=== PATIENT | male | born 1970 | race African-American/Black ===

== ENCOUNTER 2017-09-29 11:45 | Emergency (ER) | payer OTHER ==
[2017-09-29 12:26] LABS: Bilirubin Negative (Negative); Blood, Urine Large (Negative); Clarity Cloudy (Clear); Glucose, Urine (Dipstick) Negative (Negative); Leukocyte Small (Negative); Nitrite Negative (Negative); Protein, Urine (Dipstick) > or equal to 300 mg/dL (Neg-Trace); Specific Gravity, Urine 1.025 (1.005-1.030)
[2017-09-29 12:29] LABS: RBC/HPF GREATER THAN 50-TNTC HPF (0-3); WBC/HPF 21-50 HPF (0-3)
[2017-09-29 12:30] LABS: Bacteria/HPF 1+ HPF (None Seen); Other Casts/LPF 0-3 COARSE GRAN LPF (0-3 Hyaline); Oval Fat Bodies/HPF 1+ HPF (None Seen); Squamous Epithelial 0-3 HPF (0-3)
== END 2017-09-29 13:08 | disposition home or self-care (01) ==
LOC: SCSER 11:45
DX: N30.01 Acute cystitis with hematuria (principal)
CPT/HCPCS: 81003; 81015; 87077; 87086; 87186; 99283

== ENCOUNTER 2018-12-31 07:02 | Inpatient (IN) | payer OTHER, SELFPAY ==
[2018-12-31] MEDS ORDERED: Diazepam 10 MG/2 ML SYRINGE ONE (07:24)
[2018-12-31] MEDS ORDERED: Meclizine HCl 25 MG TAB ONE (07:24)
[2018-12-31 07:32] LABS: #Basophils 0.1 thou/uL (0.0-0.2); #Lymphocytes 1.5 thou/uL (1.20-3.40); #Monocytes 0.5 thou/uL (0.11-0.59); #Neutrophils 2.9 thou/uL (1.40-6.50); %Basophils 1.5 % (0.0-1.0); %Eosinophils 0.5 % (0.0-10.0); %Lymphocytes 30.2 % (21.0-51.0); %Monocytes 10.5 % (0.0-10.0); %Neutrophils 57.3 % (42.0-75.0); Hemoglobin 17.1 g/dL (14.0-18.0); Mean Corpuscular HGB CONC 34.1 g/dL (32.0-36.0); Mean Corpuscular Hemoglobin 29.7 pg (27.0-31.0); Mean Corpuscular Volume 87.3 fL (78.0-98.0); Mean Platelet Volume 8.2 fL (7.4-10.4); Platelet Count 271 thou/uL (130-400); RBC Distribution Width 12.2 % (11.5-14.5); Red Blood Cell (RBC) Count 5.74 mill/uL (4.70-6.10); White Blood Cell (WBC) Count 5.1 thou/uL (4.8-10.8)
--- NOTE | 2018-12-31 07:40 | CT ---
Head CT without contrast 12/31/2018: HISTORY: Dizziness, headache TECHNIQUE: Axial CT imaging at 5 mm intervals from vertex through skull base without contrast FINDINGS: The visualized paranasal sinuses and mastoid air cells are well aerated. No displaced ayaan rial fracture. No intracranial hemorrhage, midline shift, mass effect, or ventricular enlargement. IMPRESSION: No acute findings.
[2018-12-31 07:44] LABS: ALT (SGPT) 42 U/L (8-55); AST (SGOT) 56 U/L (5-34); Albumin 4.2 g/dL (3.5-5.0); Alkaline Phosphatase 63 U/L (40-110); Anion Gap 15 mmol/L (10-20); BUN (Urea Nitrogen) 9 mg/dL (8.9-20.6); Bilirubin, Total 0.6 mg/dL (0.2-1.2); CK (CPK) 668 U/L (30-200); Calc. Creatinine Clearance 0 mL/min (70-130); Calcium 8.9 mg/dL (7.8-10.44); Carbon Dioxide 23 mmol/L (22-29); Chloride 106 mmol/L (98-107); Estimated GFR-MDRD Greater than 90; Globulin 3.4 g/dL (2.4-3.5); Glucose 95 mg/dL (70-105); Lipase 43 U/L (8-78); Potassium 3.9 mmol/L (3.5-5.1); Protein, Total 7.6 g/dL (6.0-8.3); Sodium 140 mmol/L (136-145)
--- NOTE | 2018-12-31 07:51 | RAD ---
Portable frontal chest radiograph: 12/31/2018 COMPARISON: None HISTORY: Dizziness, nausea and vomiting FINDINGS: Lungs are clear. There is significant upper thoracic spine dextroscoliosis. IMPRESSION: No acute findings.
[2018-12-31] MEDS ORDERED: Aspirin 325 MG TAB ONE (07:53)
[2018-12-31 08:12] LABS: CKMB 8.1 ng/mL (0-6.6)
[2018-12-31] MEDS ORDERED: Nitroglycerin 2% Ointment 1 INCH/1 GM Packet ONE (09:32)
[2018-12-31 11:52] LABS: Troponin I 0.029 ng/mL (< 0.028)
[2018-12-31 12:26] VITALS: BMI 26.6
[2018-12-31] MEDS ORDERED: Lidocaine 2% Viscous Solution 10 ML, Aluminum & Magnesium Hydroxide 30 ML SSW SCH (14:45)
[2018-12-31] MEDS ORDERED: Ketorolac Tromethamine 30 MG/ML VIAL IVP SCH (14:45)
[2018-12-31 14:47] LABS: Troponin I 0.032 ng/mL (< 0.028)
[2018-12-31] MEDS ORDERED: FLU VACC QS2019-20(6MOS UP)/PF 60 MCG/0.5 ML SYRINGE IM ONE (15:00)
[2018-12-31] MEDS ORDERED: Acetaminophen 325 MG TAB PO PRN (16:10)
[2018-12-31] MEDS ORDERED: Senokot S 8.6-50 MG TAB PO PRN (16:10)
[2018-12-31] MEDS ORDERED: HYDROcodone/Acetaminophen 5/325 mg Tablet PO PRN (16:10)
[2018-12-31] MEDS ORDERED: cloNIDine 0.1 MG TAB PO PRN (16:27)
[2018-12-31] MEDS: Sodium Chloride 0.9% 1,000 ML IV SCH (16:44)
[2018-12-31 17:03] LABS: Reticulocyte Count 1.7 % (0.5-1.5)
[2018-12-31 17:26] LABS: CRP (Inflammatory) Less than 0.50 mg/dL (= or < 0.5); Uric Acid 6.4 mg/dL (3.5-7.2)
--- NOTE | 2018-12-31 19:07 | HP ---
PRIMARY CARE PHYSICIAN: Nubia Arredondo. CHIEF COMPLAINT: Dizziness, chest pain. HISTORY OF PRESENT ILLNESS: Mr. Schuler is a very pleasant 48-year-old male, who reports to the emergency room in [facility] this morning after waking up with severe dizziness, nausea, and vomiting. Reports that he went to bed feeling a little bit dizzy, but woke up with severe dizziness and threw up several times. He denied any chest pain at that time. Denied any headache or vision changes. Reports the condition was exacerbated by position. Reports that the last time he felt dizzy was when his blood pressure was elevated several years ago and started on medication for his blood pressure. Reports that they have taken him off his medication because he lost some weight and he was no longer hypertensive. Does report, however, that when he went to see his PCP last, that his blood pressure was elevated again in the office, but no medications were restarted. Reports the dizziness was improved after the patient was given some meclizine and some Valium. While in the emergency room, he started complaining of some chest tightness. A second EKG was obtained, which showed normal sinus rhythm, beats per minute 71, no ST elevation. The patient was subsequently sent over to [facility] for further management. REVIEW OF SYSTEMS: The patient reports dizziness. Denies headache or focal weakness. Reports dizziness improved after medication. Reports nausea, vomiting. Denies any diarrhea or abdominal pain. Reports some chest pressure. Reports some joint pain. All other systems are reviewed and are negative unless mentioned in the HPI. PAST MEDICAL HISTORY: Pertinent for GERD, gout, and asthma. PAST SURGICAL HISTORY: None. PSYCHIATRIC HISTORY: None. SOCIAL HISTORY: Lives at home with his family. He is a former tobacco smoker. Drinks alcohol 2 glasses of liquor per day. Denies any drug use. KNOWN ALLERGIES: None. CURRENT MEDICATIONS: 1. Allopurinol 300 mg p.o. daily. 2. Trazodone 50 mg p.o. at bedtime. 3. Prilosec 40 mg p.o. daily. PHYSICAL EXAMINATION: VITAL SIGNS: Blood pressure 158/92, pulse is 85, respirations are 19, temperature is 98.3, and pO2 sats are 98% on room air. CONSTITUTIONAL: The patient appears nontoxic. He is alert and oriented to person, place, and time. HEENT: Head is atraumatic and normocephalic. Eyes; pupils are equally round and reactive to light. Extraocular muscles are intact. ENT; mouth exam is normal. Mucous membranes are moist. NECK: Normal range of motion. Trachea is midline. RESPIRATORY/CHEST: Breath sounds are clear. Chest expansion is equal. CARDIOVASCULAR: Regular rate and rhythm. Heart sounds are normal. ABDOMEN: Nontender. Bowel sounds are heard. BACK: Normal inspection. Normal range of motion. EXTREMITIES: Upper extremity; inspection normal. Normal range of motion. Radial pulses are normal. Lower extremity; normal inspection. Normal range of motion. Pedal pulses are normal. No edema is noted. NEUROLOGIC: The patient is oriented to person, place, and time. Speech is normal. Cranial nerves 2 through 12 are grossly intact. SKIN: Warm, dry, and normal in color. ASSESSMENT AND PLAN: 1. Dizziness, improved after meclizine and Valium. CT scan of the head showed no acute findings. The patient has no other neurological symptoms. We will continue the meclizine 12.5 mg q.8 hours as needed, also trend blood pressure. We will treat as needed. 2. Chest pressure. Troponins x3 are in the indeterminate range. We will order a stress test in the morning. 3. Joint discomfort, possible gout flare. We will check uric acid. He reports a brother has sickle cell, so we will check a retic count, ESR, sed rate. Hydrate with 75 mL per hour. CK is also elevated at 668. We will recheck value in the morning. 4. Gastrointestinal and deep venous thrombosis prophylaxis has been started. 5. Hospital course is dependent on clinical findings. Job ID: [id number]
[2018-12-31] MEDS: Meclizine HCl 12.5 MG TAB PO SCH (20:21)
[2018-12-31] MEDS: traZODone HCl 50 MG TAB PO SCH (20:21)
[2018-12-31 20:41] LABS: Bilirubin Negative (Negative); Blood, Urine 1+ (Negative); Clarity Clear (Clear); Glucose, Urine (Dipstick) Normal (Negative); Leukocyte 75 Leu/uL (Negative); Nitrite Negative (Negative); Protein, Urine (Dipstick) 50 mg/dL (Neg-Trace); Squamous Epithelial 0-3 HPF (0-3)
[2018-12-31 20:50] LABS: Amphetamine Not Detected (NotDetected); Barbiturates Screen Not Detected (NotDetected); Benzodiazepine Screen Detected (NotDetected); Cocaine Metabolite Screen Not Detected (NotDetected); Medtox Control Line Valid? VALID (VALID); Medtox Reader # READER 4; Methadone Not Detected (NotDetected); Methamphetamine Not Detected (NotDetected); Opiate Screen Not Detected (NotDetected); Oxycodone Screen Not Detected (NotDetected); Phencyclidine (PCP) Not Detected (NotDetected); THC/Cannabinoid Screen Not Detected (NotDetected); Tricyclic Screen Not Detected (NotDetected)
[2018-12-31 20:52] LABS: Bacteria/HPF Rare-Few HPF (None Seen); Mucous/LPF 2+ LPF (<2+)
[2018-12-31 20:53] LABS: Urine Culture Reflex Yes Yes
[2018-12-31] MEDS ORDERED: Famotidine 20 MG TAB PO SCH (21:00)
[2019-01-01] MEDS: Sodium Chloride 0.9% 1,000 ML IV SCH ×3 (05:41→21:24)
[2019-01-01] MEDS ORDERED: Enoxaparin Sodium 40 MG/0.4 ML SYRINGE SC SCH (09:00)
[2019-01-01] MEDS ORDERED: Iopamidol 370 76% 100 ML VIAL ONE (09:19)
[2019-01-01 11:30] LABS: #Lymphocytes 1.1 thou/uL (1.20-3.40); #Monocytes 0.9 thou/uL (0.11-0.59); %Basophils 0.7 % (0.0-1.0); %Eosinophils 0.3 % (0.0-10.0); %Lymphocytes 18.2 % (21.0-51.0); %Monocytes 14.3 % (0.0-10.0); %Neutrophils 66.5 % (42.0-75.0); Hemoglobin 15.2 g/dL (14.0-18.0); Mean Corpuscular HGB CONC 34.3 g/dL (32.0-36.0); Mean Corpuscular Hemoglobin 30.4 pg (27.0-31.0); Mean Corpuscular Volume 88.7 fL (78.0-98.0); Mean Platelet Volume 7.6 fL (7.4-10.4); Platelet Count 197 thou/uL (130-400); RBC Distribution Width 11.9 % (11.5-14.5); Red Blood Cell (RBC) Count 4.98 mill/uL (4.70-6.10)
[2019-01-01] MEDS: Meclizine HCl 12.5 MG TAB PO SCH ×3 (11:58→21:21)
[2019-01-01] MEDS: HYDROcodone/Acetaminophen 5/325 mg Tablet PO PRN ×2 (12:01→17:54)
[2019-01-01 12:04] LABS: Anion Gap 11 mmol/L (10-20); BUN (Urea Nitrogen) 10 mg/dL (8.9-20.6); CK (CPK) 274 U/L (30-200); Calc. Creatinine Clearance 119 mL/min (70-130); Calcium 8.6 mg/dL (7.8-10.44); Carbon Dioxide 27 mmol/L (22-29); Chloride 104 mmol/L (98-107); Estimated GFR-MDRD Greater than 90; Glucose 126 mg/dL (70-105); Potassium 3.7 mmol/L (3.5-5.1); Sodium 138 mmol/L (136-145)
[2019-01-01 12:27] LABS: Cardiac Risk 3.4 (Less than 4.5)
--- NOTE | 2019-01-01 13:29 | NM ---
CARDIAC SPECT: CLINICAL HISTORY: 48-year-old male with chest pain. TECHNIQUE: A myocardial perfusion scan was performed using the single isotope one day protocol with technetium-9 9m sestamibi. 10 mCi were injected intravenously for the rest exam followed by 32 mCi for the stress exam. Pharmacologic stress with Adenosine was monitored and interpreted by Melissa Miller NP. FINDINGS: Homogeneous tracer distribution is seen in the myocardial segments on stress and rest images without fixed or reversible defects. GATED SPECT LVEF: 38%. WALL MOTION EXAM: Global hypokinesis. IMPRESSION: No evidence of reversible ischemia. POS: MAE
--- NOTE | 2019-01-01 14:55 | PDOC.HOSPP ---
- Subjective Encounter Date: 01/01/19 Encounter Time: 14:51 Subjective: 48 y/o male with gout admitted with acute onset of dizziness associated with nausea and vomiting. He developed chest pain while in the ER. Further evaluation showed troponing and CK elevation. Stress test earlier today showed diffuse hypokinesis but no reversible ischemia. He continues to have left chest tightness. Dizziness has resolved. - Objective Vital Signs & Weight: Vital Signs (12 hours) Temp Pulse Resp BP BP BP BP 01/01/19 11:36 99.8 F H 83 14 159/100 H 01/01/19 07:54 98.1 F 81 14 153/98 H 161/104 H 143/93 H 01/01/19 04:11 98.5 F 97 20 143/97 H Pulse Ox 01/01/19 11:36 98 01/01/19 07:54 97 01/01/19 04:11 97 Weight Weight 209 lb 1.6 oz I&O: 12/31/18 01/01/19 01/02/19 06:59 06:59 06:59 Intake Total 2119 Output Total 120 Balance 1998 Result Diagrams: 01/01/19 11:14 01/01/19 11:14 Hospitalist ROS - Medication Medications: Active Medications Generic Name Dose Route Start Last Admin Trade Name Freq PRN Reason Stop Dose Admin Hydrocodone Bitart/Acetaminophen 1 tab 12/31/18 16:10 01/01/19 12:01 [place] 5/325 PO 1 tab Q4H PRN Administration Moderate Pain (4-6) Enoxaparin Sodium 40 mg 01/01/19 09:00 01/01/19 11:58 Lovenox SC 40 mg 0900 PEPPER Administration Sodium Chloride 1,000 mls @ 75 mls/hr 12/31/18 15:30 01/01/19 05:41 Normal Saline 0.9% IV 1,000 mls .[id number] PEPPER Administration Meclizine HCl 12.5 mg 12/31/18 21:00 01/01/19 11:58 Antivert PO 12.5 mg TID PEPPER Administration Pantoprazole Sodium 40 mg 01/01/19 09:00 01/01/19 11:58 Protonix PO 40 mg DAILY PEPPER Administration Trazodone HCl 50 mg 12/31/18 21:00 12/31/18 20:21 Desyrel PO 50 mg HS PEPPER Administration - Exam General Appearance: awake alert Eye: anicteric sclera ENT: normocephalic atraumatic, moist mucosa Neck: supple, no JVD Heart: RRR, no murmur Respiratory: no wheezes, no rales, no ronchi, normal chest expansion Gastrointestinal: soft, non-tender, non-distended, normal bowel sounds Extremities: no cyanosis, no clubbing, no edema Neurological: cranial nerve grossly intact, no focal deficits Psychiatric: normal affect, A&O x 3 Hosp A/P (1) Cardiomyopathy Code(s): I42.9 - CARDIOMYOPATHY, UNSPECIFIED Status: Suspected (2) Chest pain Code(s): R07.9 - CHEST PAIN, UNSPECIFIED Status: Acute (3) Gout Code(s): M10.9 - GOUT, UNSPECIFIED Status: Acute (4) Rhabdomyolysis Code(s): M62.82 - RHABDOMYOLYSIS Status: Acute - Plan Continue IVF get Echo Consult cardiology Continue PPI and allopurinol. Follow Ck.
[2019-01-01] MEDS ORDERED: Heparin 10,000 UNITS/1 ML VIAL ONE (15:25)
[2019-01-01] MEDS ORDERED: Lidocaine 1% (PF) 30 ML VIAL ONE (15:26)
[2019-01-01] MEDS ORDERED: Nitroglycerin 100MG/250ML BOT 250 ML ONE (15:28)
[2019-01-01] MEDS ORDERED: Verapamil 5 MG/2 ML VIAL ONE (15:28)
[2019-01-01] MEDS ORDERED: Communication Order-Pharmacy FS SCH (15:30)
--- NOTE | 2019-01-01 15:41 | CON ---
DATE OF CONSULTATION: 01/01/2019 REASON FOR CONSULTATION: Abnormal stress study and chest pain. HISTORY OF PRESENT ILLNESS: Mr. Schuler is a pleasant 48-year-old gentleman with previous history of hypertension that has not been treated, who recently presented with chest pain, dizziness, and lightheadedness. He states the dizziness and lightheadedness have persisted while he has been in the hospital. His rhythm has been stable. His chest pain occurs intermittently. It occurs for several minutes. He states it occurs when he walks up a flight of stairs. It is felt to be random now. He also states it occurs after working out. He states he is not able to do what he has done in the past because he has been concerned about his heart. He presented with the above to an outlying facility and was found to have significant hypertension. He was treated and transferred to [facility]. PAST MEDICAL HISTORY: Acid reflux; hypertension, untreated; gout; and asthma. SOCIAL HISTORY: Previous tobacco abuse. Positive alcohol use. No drug use. ALLERGIES: NONE. REVIEW OF SYSTEMS: Ten-point review of systems was reviewed as above, otherwise negative. PHYSICAL EXAMINATION: GENERAL: Patient is a pleasant 48-year-old gentleman who is in no acute distress. The patient appears their stated age. VITAL SIGNS: Blood pressure 159/100, pulse 83, temperature 98.1. NEUROLOGIC: The patient is alert and oriented x3 with no focal neurologic deficits. HEENT: Sclerae without icterus. Mouth has moist mucous membranes with normal pallor. NECK: No JVD. Carotid upstroke brisk. No bruits bilaterally. LUNGS: Clear to auscultation with unlabored respirations. BACK: No scoliosis or kyphosis. CARDIAC: Regular rate and rhythm with normal S1 and S2. No S3 or S4 noted. No significant rubs, murmurs, thrills, or gallops noted throughout the precordium. PMI is not displaced. There is no parasternal heave. ABDOMEN: Soft, nontender, nondistended. No peritoneal signs present. No hepatosplenomegaly. No abnormal striae. EXTREMITIES: 2+ femoral and 2+ dorsalis pedis pulses. No cyanosis, clubbing, or edema. SKIN: No gross abnormalities. PERTINENT LABORATORY DATA: Hemoglobin 15.2, hematocrit 44.2, and platelet count 197. EKG; normal sinus rhythm, normal EKG. IMPRESSION: 1. Chest pain. 2. Abnormal stress study. 3. Untreated hypertension. RECOMMENDATIONS: Mr. Schuler's decreased LVEF is likely related to untreated hypertension, although given risk factors, can also be due to balanced ischemia. He also has associated chest pain that occurs with exertion. I discussed proceeding with medical therapy versus coronary angiography. I discussed coronary angiography in full detail. Risks include, but not limited to the following: , stroke, MD, need for emergency surgery, loss of limb, bleeding, and infection, as well as a reaction to the dye causing kidney failure and needing long-term dialysis. I also discussed the risks of PCI to include all of the above including coronary dissection and perforation in addition to acute stent thrombosis and restenosis. All questions about the procedure were answered. Given the above, the patient agreed to proceed with coronary angiography and possible PCI. All questions answered. Given the above, the patient agreed to proceed with procedure. Further recommendations pending of the above. Job ID: [id number]
[2019-01-01] MEDS ORDERED: hydrALAZINE 20 MG/ML VIAL ONE (16:08)
[2019-01-01] MEDS ORDERED: Nitroglycerin 4.9 GM Bottle ONE (16:08)
[2019-01-01] MEDS ORDERED: Nitroglycerin 0.4 MG TAB (25 Tab Bottle) SL PRN (16:22)
[2019-01-01] MEDS ORDERED: Sodium Chloride 0.9% 200 ML IV PRN (16:22)
[2019-01-01] MEDS ORDERED: Acetaminophen/Codeine 30-300mg Tablet PO PRN ×2 (16:22)
[2019-01-01] MEDS ORDERED: Sodium Chloride 0.9% 1,000 ML IV SCH (16:30)
[2019-01-01] MEDS ORDERED: ADENOSINE 60 MG/20 ML VIAL ONE (20:31)
[2019-01-01] MEDS: Carvedilol 3.125 MG TAB PO SCH (21:21)
[2019-01-01] MEDS: traZODone HCl 50 MG TAB PO SCH (22:06)
[2019-01-02] MEDS ORDERED: guaiFENesin 200 MG TAB PO PRN (04:33)
[2019-01-02] MEDS: Benzonatate 100 MG CAP PO PRN ×2 (05:15→09:21)
[2019-01-02] MEDS ORDERED: Ibuprofen 200 MG TAB PO PRN (07:13)
[2019-01-02 07:39] LABS: ALT (SGPT) 32 U/L (8-55); AST (SGOT) 29 U/L (5-34); Albumin 3.3 g/dL (3.5-5.0); Alkaline Phosphatase 63 U/L (40-110); Anion Gap 10 mmol/L (10-20); BUN (Urea Nitrogen) 7 mg/dL (8.9-20.6); Bilirubin, Total 0.6 mg/dL (0.2-1.2); CK (CPK) 202 U/L (30-200); Calc. Creatinine Clearance 127 mL/min (70-130); Carbon Dioxide 26 mmol/L (22-29); Chloride 107 mmol/L (98-107); Estimated GFR-MDRD Greater than 90; Globulin 2.8 g/dL (2.4-3.5); Glucose 98 mg/dL (70-105); Potassium 3.4 mmol/L (3.5-5.1); Protein, Total 6.1 g/dL (6.0-8.3); Sodium 140 mmol/L (136-145)
[2019-01-02] MEDS ORDERED: Losartan 25 MG TAB PO SCH (09:00)
[2019-01-02] MEDS: Meclizine HCl 12.5 MG TAB PO SCH ×2 (09:21→14:47)
[2019-01-02] MEDS: Carvedilol 3.125 MG TAB PO SCH (09:21)
[2019-01-02] MEDS ORDERED: Potassium Chloride 20 MEQ TAB PO SCH (09:45)
--- NOTE | 2019-01-02 09:45 | RAD ---
XR Chest Pa Lat STANDARD HISTORY: Worsening cough and chest pain COMPARISON: None FINDINGS: The heart size is normal. The lungs are well expanded without focal areas of consolidation, pneumothorax or pleural effusions. Dextroscoliosis of the thoracic spine is again seen. IMPRESSION: No radiographic evidence of acute cardiopulmonary process.
--- NOTE | 2019-01-02 13:25 | PDOC.HOSPP ---
- Subjective Encounter Date: 01/02/19 Encounter Time: 09:23 Subjective: 48 y/o male with gout admitted with acute onset of dizziness associated with nausea and vomiting. He developed chest pain while in the ER. Further evaluation showed troponing and CK elevation. Stress test earlier today showed diffuse hypokinesis and low EF but no reversible ischemia. He continues to have left chest tightness which is now pleuritic. Also having worsening cough. Dizziness has resolved. Had cardiac cath last night which showed normal coronaries - Objective Vital Signs & Weight: Vital Signs (12 hours) Temp Pulse Resp BP Pulse Ox 01/02/19 11:49 99.4 F 99 20 141/91 H 97 01/02/19 07:35 98.6 F 102 H 24 H 162/101 H 97 01/02/19 04:20 98 F 94 20 148/77 H 98 01/02/19 03:08 98.5 F 103 H 16 137/90 98 Weight Weight 210 lb 4.8 oz I&O: 01/01/19 01/02/19 01/03/19 06:59 06:59 06:59 Intake Total 2118 2146 Output Total 120 Balance 1998 2146 Result Diagrams: 01/01/19 11:14 01/02/19 06:45 Hospitalist ROS - Medication Medications: Active Medications Generic Name Dose Route Start Last Admin Trade Name Freq PRN Reason Stop Dose Admin Hydrocodone Bitart/Acetaminophen 1 tab 12/31/18 16:10 01/01/19 17:54 [place] 5/325 PO 1 tab Q4H PRN Administration Moderate Pain (4-6) Benzonatate 100 mg 01/02/19 04:33 01/02/19 09:21 Tessalon PO 100 mg Q4H PRN Administration Cough Guaifenesin 200 mg 01/02/19 04:33 01/02/19 11:10 Organ-I Nr PO 200 mg Q4H PRN Administration Congestion Losartan Potassium 50 mg 01/02/19 09:00 01/02/19 09:21 Cozaar PO 50 mg DAILY PEPPER Administration Meclizine HCl 12.5 mg 12/31/18 21:00 01/02/19 09:21 Antivert PO 12.5 mg TID PEPPER Administration Pantoprazole Sodium 40 mg 01/01/19 09:00 01/02/19 09:21 Protonix PO 40 mg DAILY PEPPER Administration Trazodone HCl 50 mg 12/31/18 21:00 01/01/19 22:06 Desyrel PO 50 mg HS PEPPER Administration - Exam General Appearance: awake alert Eye: anicteric sclera ENT: normocephalic atraumatic Neck: supple, symmetric, no JVD Heart: RRR Respiratory: no wheezes, no rales, no ronchi, normal chest expansion Gastrointestinal: soft, non-tender, non-distended, normal bowel sounds Extremities: no cyanosis, no edema Neurological: cranial nerve grossly intact, no focal deficits Psychiatric: A&O x 3 Hosp A/P (1) Cardiomyopathy Code(s): I42.9 - CARDIOMYOPATHY, UNSPECIFIED Status: Suspected (2) Chest pain Code(s): R07.9 - CHEST PAIN, UNSPECIFIED Status: Acute (3) Gout Code(s): M10.9 - GOUT, UNSPECIFIED Status: Acute (4) Rhabdomyolysis Code(s): M62.82 - RHABDOMYOLYSIS Status: Acute (5) URI (upper respiratory infection) Code(s): J06.9 - ACUTE UPPER RESPIRATORY INFECTION, UNSPECIFIED Status: Acute (6) HTN (hypertension) Code(s): I10 - ESSENTIAL (PRIMARY) HYPERTENSION Status: Acute (7) Hypokalemia Code(s): E87.6 - HYPOKALEMIA Status: Acute - Plan Increase coreg to 6.25. continue losartan. Replete serum potassium with Oral KCL Get respiratory viral panel and CXR DC IVF awaiting Echo Consult cardiology Continue PPI and allopurinol.
[2019-01-02 15:49] VITALS: BP 139/83; TEMP 99.1
[2019-01-02] MEDS ORDERED: Carvedilol 6.25 MG TAB PO SCH ×2 (17:30→21:00)
--- NOTE | 2019-01-03 07:31 | DIS ---
DATE OF ADMISSION: 12/31/2018 DATE OF DISCHARGE: 01/02/2019 PRIMARY CARE PHYSICIAN: Dr. Nubia Arredondo. DISCHARGE DIAGNOSES: 1. Uncontrolled hypertension. 2. Diastolic dysfunction. 3. Atypical chest pain. 4. Presumed myocarditis. 5. Rhabdomyolysis. 6. Hypokalemia. 7. Rhinovirus infection. 8. Upper respiratory symptoms. 9. Gouty arthropathy. 10. Elevated troponin. CONSULTS: Cardiology. PROCEDURE PERFORMED: Cardiac catheterization. HOSPITAL COURSE: A 48-year-old male with past medical history significant for gout, admitted with acute onset of dizziness associated with nausea and vomiting. Impression of positional vertigo was made and the patient was treated with meclizine and diazepam with some improvement. While in the ER, the patient, however, developed chest pain and further evaluation revealed elevated troponin as well as CK and CK-MB. The patient also reported some upper respiratory symptoms and cough. Given history and increased risk factors for acute coronary syndrome, the patient was further evaluated with nuclear stress test, which came back with diffuse hypokinesis associated with low EF in 30s, but no reversible ischemia. The patient continued to have chest discomfort. Cardiology consult was obtained and he subsequently had cardiac cath, which showed normal coronary arteries. Further evaluation with respiratory viral panel came back positive for rhinovirus. The patient who has ascites regularly was also thought to have rhabdomyolysis and was treated with IV fluid with improvement. The patient also had an echocardiogram which showed normal systolic function with EF of 55. Features of diastolic dysfunction also were noted. The patient was started on antihypertensives as blood pressure was consistently elevated with improvement. He improved clinically and was subsequently discharged to follow up with PCP. DISCHARGE CONDITION: Improved. DISCHARGE DISPOSITION: Home. DISCHARGE MEDICATIONS: 1. Allopurinol 300 mg p.o. daily. 2. Omeprazole 40 mg p.o. daily. 3. Trazodone 50 mg p.o. daily at bedtime. 4. Acetaminophen 650 mg q.6 p.r.n. for pain. 5. Aspirin 81 mg p.o. daily. 6. Tessalon Per[place] 100 mg q.6 p.r.n. for cough. 7. Carvedilol 12.5 mg p.o. b.i.d. 8. Losartan 50 mg p.o. daily. TIME SPENT: This discharge took more than 33 minutes. Job ID: [id number]
--- NOTE | 2019-01-04 03:42 | PQF ---
KENDALL CHAVEZ OBI, CHIZOBA C [id number] CLINICAL DOCUMENTATION CLARIFICATION FORM: POST DISCHARGE Addendum to original discharge summary date: ____ Late entry note date: __ DATE: 01/04/19 ATTN: Griselda Mondragon Obi Please exercise your independent, professional judgment in responding to the clarification form. Clinical indicators are provided on the bottom of this form for your review Can you please further specify the etiology of chest pain? Please check appropriate box(s): [ ] Rhabdomyolysis [ ] Myocarditis [ ] Cardiomyopathy [ ] Atypical chest pain [ ] Chest pain of unknown etiology [ ] GERD [ ] Other diagnosis please specify [ ] Unable to determine In addition, please specify: Present on Admission (POA): [ ] Yes [ ] No [ ] Unable to determine For continuity of documentation, please document condition throughout progress notes and discharge summary. Thank You. CLINICAL INDICATORS - SIGNS / SYMPTOMS /LABS H and P 12/31 pg.1 He stated complaining of some chest tightness H and P 12/31 pg.2- Chest pressure. Troponin x3 are in intermediate range Hospitalist PN 01/01 Dr. Corbett pg.1- he develop chest pain while in the ER. Further evaluation showed troponin and CK elevation Hospitalist PN 01/01 Dr. Corbett pg.3- Cardiomyopathy Hospitalist PN 01/01 Dr. Corbett pg.4- Rhabdomyolysis Consult 01/01 Dr. Walker pg.1- presented with chest pain, dizziness and lightheadedness DS pg.1- Atypical chest pain DS pg.1- Presumed myocarditis RISK FACTORS Hypertension-Consult 01/01 Dr. Walker pg.1 [employer] Engagement Liaison [employer] Winform ViewerAcid reflux- Consult 01/01 Dr. Walker pg.1 Abnormal stress study-Consult 01/01 Dr. Walker pg.2 Diastolic Dysfunction- DS pg.1 Elevated Troponin- DS pg.1 TREATMENTS: [facility]-- Ladle Patcher Physician 12/31 Chest Xray 12/31 Cardiology Consult- Dr. Viramontes 01/01 Stress Test 01/01 IV Fluids- MAY 19 Diazepam (Valium) 10mg IV- MAY 19 Nitroglycerin- MAY 19 (This form is maintained as a part of the permanent medical record) 2014 [employer]. All Rights Reserved [email or web address] [email or web address] [not provided] MTDD
== END 2019-01-02 18:28 | disposition home or self-care (01) | DRG 287 ==
LOC: SCSER 07:02 → OBSVTOIN 08:05 → ERHOLD 08:05 → 2SW 11:34
PROVIDERS: ADMIT Internal Medicine; ATTEND Internal Medicine
PROC: 4A023N7 Measurement of Cardiac Sampling and Pressure, Left Heart, Percutaneous Approach (ICD-10-PCS; principal; 2019-01-01)
PROC: B2111ZZ Fluoroscopy of Multiple Coronary Arteries using Low Osmolar Contrast (ICD-10-PCS; 2019-01-01)
PROC: B2151ZZ Fluoroscopy of Left Heart using Low Osmolar Contrast (ICD-10-PCS; 2019-01-01)
PROC: 3E02340 Introduction of Influenza Vaccine into Muscle, Percutaneous Approach (ICD-10-PCS; 2019-01-01)
DX: R07.89 Other chest pain (principal); I42.9 Cardiomyopathy, unspecified; M62.82 Rhabdomyolysis; I51.4 Myocarditis, unspecified; H81.10 Benign paroxysmal vertigo, unspecified ear; K21.9 Gastro-esophageal reflux disease without esophagitis; M10.9 Gout, unspecified; Z23 Encounter for immunization; J45.909 Unspecified asthma, uncomplicated; I10 Essential (primary) hypertension; J06.9 Acute upper respiratory infection, unspecified; E87.6 Hypokalemia; B34.8 Other viral infections of unspecified site; R79.89 Other specified abnormal findings of blood chemistry; Z87.891 Personal history of nicotine dependence; Z79.899 Other long term (current) drug therapy
CPT/HCPCS: 36415; 70450; 71045; 71046; 78452; 80048; 80053; 80061; 80306; 81001; 82550; 82553; 83690; 84484; 84550; 85025; 85046; 85652; 86140; 87086; 87633; 87804; 90471; 90686; 93005; 93010; 93017; 93306; 93458; 96374; A9500; C1769; G0008; J0153; J0360; J1644; J1650; J1885; J2001; J3360; J8597; Q9967